=== PATIENT | male | born 1945 | race African-American/Black ===

== ENCOUNTER 2023-06-03 11:32 | Inpatient (IN) | payer MEDICARE, OTHER ==
[~2023-06-03] VITALS: Ht 175.3 cm; Wt 73.0 kg
[2023-06-03] MEDS ORDERED: IV NS 0.9% 500 ML BAG IV ONE (12:00)
[2023-06-03 12:01] LABS: BASOPHILS % (AUTO) 0.4 % (0.0-2.0); EOSINOPHILS % (AUTO) 0.1 % (0.0-6.0); HEMATOCRIT 38 % (39-51); HEMOGLOBIN 11.9 g/dL (13.5-17.5); LYMPHOCYTES # (AUTO) 1.1 K/uL (0.8-4.8); LYMPHOCYTES % (AUTO) 15.6 % (20.0-44.0); MEAN CORPUSCULAR HEMOGLOBIN 23 PG (26.0-33.0); MEAN CORPUSCULAR HGB CONC 32 g/dl (31.0-36.0); MEAN CORPUSCULAR VOLUME 73 fL (80-96); MONOCYTES # (AUTO) 1.1 K/uL (0.1-1.30); MONOCYTES % (AUTO) 14.8 % (2.0-12.0); NEUTROPHILS # (AUTO) 4.9 K/uL (1.8-8.9); NEUTROPHILS % (AUTO) 69.1 % (43.0-81.0); PLATELET COUNT (AUTO) 189 K/uL (150-450); RED BLOOD CELL COUNT(AUTO) 5.14 MIL/uL (4.5-6.0); RED CELL DISTRIBUTION WIDTH 15.5 % (11.5-15.0); WHITE BLOOD COUNT (AUTO) 7.1 K/uL (4.3-11.0)
[2023-06-03 12:11] LABS: INR 1.1 (0.91-1.10); PARTIAL THROMBOPLASTIN TIME 29.9 SEC (24.3-34.3); PROTHROMBIN TIME 11.6 SECS (9.2-11.1)
[2023-06-03] MEDS ORDERED: MAGN400O6 PO (12:11)
[2023-06-03] MEDS ORDERED: DIVA125T32 PO (12:11)
[2023-06-03] MEDS ORDERED: ASCO-495 PO (12:11)
[2023-06-03] MEDS ORDERED: ACET-868 PO (12:11)
[2023-06-03] MEDS ORDERED: OLAN2.5T3 PO (12:11)
[2023-06-03] MEDS ORDERED: ATOR40TA PO (12:11)
[2023-06-03] MEDS ORDERED: METO25TA6 PO (12:11)
[2023-06-03] MEDS ORDERED: GLUC1KIT IM (12:11)
[2023-06-03] MEDS ORDERED: ACET-2605 PO (12:11)
[2023-06-03] MEDS ORDERED: AMLO10TA4 PO (12:11)
[2023-06-03] MEDS ORDERED: DEXT37.54 PO (12:11)
[2023-06-03] MEDS ORDERED: NA P133E RC (12:11)
[2023-06-03 12:15] LABS: CALCIUM, SERUM 9.1 mg/dL (8.5-10.1); CARBON DIOXIDE 28 mmol/L (21-32); CHLORIDE 100 mmol/L (98-107); CREATININE 1.3 mg/dL (0.6-1.3); GLUCOSE 189 mg/dL (74-106); SERUM AMMONIA 20 umol/L (11-32); SODIUM SERUM 138 mmol/L (136-145); UREA NITROGEN, BLOOD 11 mg/dL (7-18)
[2023-06-03 12:24] LABS: LACTIC ACID 2.8 mmol/L (0.4-2.0)
[2023-06-03] MEDS ORDERED: METF-440 PO (12:34)
[2023-06-03 12:48] LABS: APPEARANCE,URINE CLEAR (CLEAR); BILIRUBIN,URINE NEGATIVE (NEGATIVE); BLOOD, URINE 1+ Ery/uL (NEGATIVE); COLOR,URINE YELLOW (YELLOW); KETONES,URINE TRACE mg/dL (NEGATIVE); LEUKOCYTE ESTERASE ,URINE NEGATIVE (NEGATIVE); NITRITE, URINE NEGATIVE (NEGATIVE); PH,URINE 5.5 (5.0-8.0); PROTEIN,URINE TRACE mg/dl (NEGATIVE); UGLUCOSE TRACE mg/dL (NEGATIVE)
[2023-06-03 12:52] LABS: ADD URINE CULTURE NO; BACTERIA,URINE Rare /HPF (None Seen); RBC,URINE 0-2 /HPF (0-2); SQUAMOUS EPITHELIAL CELL,UR Few /HPF (None Seen)
[2023-06-03 13:25] LABS: AMPHETAMINE, URINE NEGATIVE (NEGATIVE); BARBITURATE, URINE NEGATIVE (NEGATIVE); BENZODIAZEPINE, URINE NEGATIVE (NEGATIVE); CANNABINOID, URINE NEGATIVE (NEGATIVE); COCCAINE, URINE NEGATIVE (NEGATIVE); OPIATE, URINE NEGATIVE (NEGATIVE); PHENCYCLIDINE SCREEN,URINE NEGATIVE (NEGATIVE)
[2023-06-03] MEDS ORDERED: VANCOMYCIN 1 GM in IV D5W 250 ML IV ONE (14:30)
[2023-06-03] MEDS ORDERED: CEFEPIME 1 GM in IV D5W 50 ML IV ONE (14:30)
[2023-06-03] MEDS ORDERED: ONDANSETRON HCL/PF 4 MG/2 ML VIAL IVP PRN (15:30)
[2023-06-03] MEDS ORDERED: ACETAMINOPHEN 325 MG TABLET PO PRN (15:30)
[2023-06-03] MEDS ORDERED: IV NS 0.9% 1,000 ML BAG IV ONE (15:30)
[2023-06-03] MEDS ORDERED: ENOXAPARIN SODIUM 40 MG/0.4 ML DISP.SYRIN SQ ONE (16:11)
[2023-06-03] MEDS: ENOXAPARIN SODIUM 40 MG/0.4 ML DISP.SYRIN SQ SCH (16:13)
[2023-06-03 16:34] LABS: ALCOHOL, BLOOD < 3 mg/dL (0-10)
[2023-06-03 16:45] LABS: SALICYLATE 1.2 mg/dL (2.8-20.0)
[2023-06-03 16:46] LABS: ACETAMINOPHEN 0 ug/ml (10-30)
[2023-06-03 20:00] VITALS: BP 136/64; TEMP 98.8; O2SAT 98
[2023-06-03] MEDS: IV NS 0.9% 1,000 ML IV PRN (23:07)
[2023-06-03 23:15] VITALS: BP 136/64; TEMP 98.8; O2SAT 98
[2023-06-04] VITALS: BP 151/58; TEMP 97.5; O2SAT 98
[2023-06-04] MEDS ORDERED: DEXTROSE 50%-WATER 50 ML DISP.SYRIN IV PRN (00:30)
[2023-06-04 02:16] LABS: ALANINE AMINOTRANSFERASE 25 U/L (12-78); ALBUMIN 3.1 g/dL (3.4-5.0); ALKALINE PHOSPHATASE 55 U/L (46-116); ASPARTATE AMINOTRANSFERASE 33 U/L (15-37); BILIRUBIN,DIRECT 0.1 mg/dL (0.0-0.2); BILIRUBIN,TOTAL 0.4 mg/dL (0.2-1.0); THYROID STIMULATING HORMONE 0.506 uIU/mL (0.358-3.74); TOTAL PROTEIN, SERUM 7.8 g/dL (6.4-8.2)
[2023-06-04 04:00] VITALS: BP 135/56; TEMP 97.5; O2SAT 98
[2023-06-04 06:24] LABS: BASOPHILS % (AUTO) 0.8 % (0.0-2.0); EOSINOPHILS # (AUTO) 0.1 K/uL (0.0-0.7); EOSINOPHILS % (AUTO) 2.5 % (0.0-6.0); HEMATOCRIT 40 % (39-51); HEMOGLOBIN 12.6 g/dL (13.5-17.5); LYMPHOCYTES # (AUTO) 1.8 K/uL (0.8-4.8); MEAN CORPUSCULAR HEMOGLOBIN 23 PG (26.0-33.0); MEAN CORPUSCULAR HGB CONC 32 g/dl (31.0-36.0); MEAN CORPUSCULAR VOLUME 73 fL (80-96); MONOCYTES # (AUTO) 0.9 K/uL (0.1-1.30); MONOCYTES % (AUTO) 18.9 % (2.0-12.0); NEUTROPHILS # (AUTO) 2.1 K/uL (1.8-8.9); NEUTROPHILS % (AUTO) 41.8 % (43.0-81.0); PLATELET COUNT (AUTO) 178 K/uL (150-450); RED BLOOD CELL COUNT(AUTO) 5.51 MIL/uL (4.5-6.0); RED CELL DISTRIBUTION WIDTH 15.1 % (11.5-15.0)
[2023-06-04 06:56] LABS: MAGNESIUM 1.8 mg/dL (1.8-2.4); PHOSPHORUS 3.8 mg/dL (2.5-4.9); POTASSIUM 3.7 mmol/L (3.5-5.1)
[2023-06-04] MEDS: BLOOD SUGAR DIAGNOSTIC 1 EACH STRIP IN SCH ×4 (07:47→21:30)
[2023-06-04 08:00] VITALS: BP 133/61; TEMP 98.6; O2SAT 94
[2023-06-04] MEDS: AMLODIPINE BESYLATE 10 MG TABLET PO SCH (09:30)
[2023-06-04] MEDS: DIVALPROEX SODIUM 125 MG TABLET.DR PO SCH ×3 (09:30→17:58)
[2023-06-04] MEDS: ASCORBIC ACID 500 MG TABLET PO SCH (09:30)
[2023-06-04] MEDS: METOPROLOL TARTRATE 25 MG TABLET PO SCH ×2 (09:31→21:29)
[2023-06-04] MEDS: ENOXAPARIN SODIUM 40 MG/0.4 ML DISP.SYRIN SQ SCH (09:31)
[2023-06-04 12:00] VITALS: BP 129/59; TEMP 97.3; O2SAT 100
[2023-06-04] MEDS: INSULIN REGULAR, HUMAN 100 UNIT/ML 3 ML VIAL SQ PRN ×2 (12:25→22:09)
[2023-06-04 12:42] LABS: ANISOCYTOSIS 1+; BASOPHILS % (MANUAL) 0 % (0.0-2.0); EOSINOPHILS % (MANUAL) 3 % (0-4); LYMPHOCYTES % (MANUAL) 25 % (16-48); MONOCYTES % (MANUAL) 16 % (0-11.0); NEUTROPHILS % (MANUAL) 56 (42-76); PLATELET ESTIMATE ADEQUATE
[2023-06-04] MEDS: IV NS 0.9% 1,000 ML IV PRN (13:00)
[2023-06-04] MEDS ORDERED: OLANZAPINE 10 MG VIAL IM ONE (14:00)
[2023-06-04 20:00] VITALS: BP 145/64; TEMP 97.5; O2SAT 60
[2023-06-04] MEDS: ATORVASTATIN 40 MG TABLET PO SCH (21:27)
[2023-06-05] MEDS: BLOOD SUGAR DIAGNOSTIC 1 EACH STRIP IN SCH ×4 (06:36→21:35)
[2023-06-05] MEDS: INSULIN REGULAR, HUMAN 100 UNIT/ML 3 ML VIAL SQ PRN ×3 (06:37→23:18)
[2023-06-05] MEDS: IV NS 0.9% 1,000 ML IV PRN ×2 (07:21→23:04)
[2023-06-05 07:30] VITALS: BP 142/64; TEMP 98.1; O2SAT 99
[2023-06-05] MEDS: ASCORBIC ACID 500 MG TABLET PO SCH (09:20)
[2023-06-05] MEDS: METOPROLOL TARTRATE 25 MG TABLET PO SCH ×2 (09:20→21:10)
[2023-06-05] MEDS: AMLODIPINE BESYLATE 10 MG TABLET PO SCH (09:20)
[2023-06-05] MEDS: DIVALPROEX SODIUM 125 MG TABLET.DR PO SCH ×3 (09:20→17:15)
[2023-06-05] MEDS: ENOXAPARIN SODIUM 40 MG/0.4 ML DISP.SYRIN SQ SCH (09:23)
[2023-06-05 16:00] VITALS: BP 99/69; TEMP 98.1; O2SAT 100
[2023-06-05 20:00] VITALS: BP 128/60; TEMP 98.1; O2SAT 96
[2023-06-05] MEDS: ATORVASTATIN 40 MG TABLET PO SCH (21:10)
[2023-06-06 06:50] LABS: BASOPHILS % (AUTO) 0.2 % (0.0-2.0); EOSINOPHILS # (AUTO) 0.1 K/uL (0.0-0.7); EOSINOPHILS % (AUTO) 1.1 % (0.0-6.0); HEMATOCRIT 37 % (39-51); HEMOGLOBIN 11.2 g/dL (13.5-17.5); LYMPHOCYTES # (AUTO) 2.4 K/uL (0.8-4.8); LYMPHOCYTES % (AUTO) 37.5 % (20.0-44.0); MEAN CORPUSCULAR HEMOGLOBIN 22 PG (26.0-33.0); MEAN CORPUSCULAR HGB CONC 31 g/dl (31.0-36.0); MEAN CORPUSCULAR VOLUME 73 fL (80-96); MONOCYTES # (AUTO) 0.9 K/uL (0.1-1.30); MONOCYTES % (AUTO) 14.3 % (2.0-12.0); NEUTROPHILS % (AUTO) 46.9 % (43.0-81.0); PLATELET COUNT (AUTO) 263 K/uL (150-450); WHITE BLOOD COUNT (AUTO) 6.4 K/uL (4.3-11.0)
[2023-06-06] MEDS: BLOOD SUGAR DIAGNOSTIC 1 EACH STRIP IN SCH ×3 (07:34→18:00)
[2023-06-06 08:24] LABS: CALCIUM, SERUM 8.5 mg/dL (8.5-10.1); MAGNESIUM 1.7 mg/dL (1.8-2.4); POTASSIUM 3.6 mmol/L (3.5-5.1)
[2023-06-06 08:37] VITALS: BP 154/60; TEMP 97.9; O2SAT 96
[2023-06-06] MEDS: ASCORBIC ACID 500 MG TABLET PO SCH (08:54)
[2023-06-06] MEDS: DIVALPROEX SODIUM 125 MG TABLET.DR PO SCH ×3 (08:54→18:01)
[2023-06-06] MEDS: METOPROLOL TARTRATE 25 MG TABLET PO SCH (08:55)
[2023-06-06] MEDS: AMLODIPINE BESYLATE 10 MG TABLET PO SCH (08:56)
[2023-06-06] MEDS: ENOXAPARIN SODIUM 40 MG/0.4 ML DISP.SYRIN SQ SCH (08:56)
[2023-06-06] MEDS: Magnesium 1GM/D5W 100ML PREMIX 100 ML IV SCH ×2 (11:17→12:27)
[2023-06-06] MEDS: INSULIN REGULAR, HUMAN 100 UNIT/ML 3 ML VIAL SQ PRN ×2 (11:54→18:02)
[2023-06-06 16:02] VITALS: BP 143/71; TEMP 98.6; O2SAT 100
== END 2023-06-06 18:45 | DRG 640 ==
LOC: ER 11:32 → TRANSITION 13:13 → TELE 18:40 → MED 06-04 18:05
PROVIDERS: ADMIT Nurse Practitioner Acute Care; ATTEND Nurse Practitioner Acute Care
DX: E86.0 Dehydration (principal); G93.41 Metabolic encephalopathy; E87.20 Acidosis, unspecified; I25.10 Atherosclerotic heart disease of native coronary artery without angina pectoris; E11.9 Type 2 diabetes mellitus without complications; E78.5 Hyperlipidemia, unspecified; Z79.84 Long term (current) use of oral hypoglycemic drugs; F31.9 Bipolar disorder, unspecified; I10 Essential (primary) hypertension; Z20.822 Contact with and (suspected) exposure to COVID-19; F03.90 Unspecified dementia, unspecified severity, without behavioral disturbance, psychotic disturbance, mood disturbance, and anxiety
CPT/HCPCS: 36415; 70450-TC; 71045-TC; 80048-TC; 80076-TC; 81001; 82140-TC; 82962-TC; 83605-TC; 83735-TC; 84100-TC; 84443-TC; 84484-TC; 85025-TC; 85730-TC; 87040-TC; 97110-TC; 97530-TC; A4223; G0378; G0480; J0692; J1650; J1815; J3370; J3475; J3490; J7030; J7060

== ENCOUNTER 2023-08-12 16:19 | Inpatient (IN) | payer BC, MEDICARE, OTHER ==
[~2023-08-12] VITALS: Ht 175.3 cm; Wt 72.6 kg
[~2023-08-12 16:19] MED LIST: ACET-2605 PO; ACET-868 PO; AMLO10TA4 PO; ASCO-495 PO; ATOR40TA PO; DEXT37.54 PO; DIVA125T32 PO; GLUC1KIT IM; MAGN400O6 PO; METF-440 PO; METO25TA6 PO; NA P133E RC; OLAN2.5T3 PO
[2023-08-12] MEDS ORDERED: MULT-447 PO (17:00)
[2023-08-12] MEDS ORDERED: DOCU-141 PO (17:00)
[2023-08-12] MEDS ORDERED: OMEG1CAP PO (17:00)
[2023-08-12] MEDS ORDERED: CEFP200T14 PO (17:00)
[2023-08-12 17:32] LABS: BASOPHILS % (AUTO) 0.1 % (0.0-2.0); HEMATOCRIT 34 % (39-51); HEMOGLOBIN 10.7 g/dL (13.5-17.5); LYMPHOCYTES # (AUTO) 0.5 K/uL (0.8-4.8); LYMPHOCYTES % (AUTO) 2.3 % (20.0-44.0); MEAN CORPUSCULAR HEMOGLOBIN 23 PG (26.0-33.0); MEAN CORPUSCULAR HGB CONC 31 g/dl (31.0-36.0); MEAN CORPUSCULAR VOLUME 74 fL (80-96); MONOCYTES # (AUTO) 1.8 K/uL (0.1-1.30); MONOCYTES % (AUTO) 8.8 % (2.0-12.0); NEUTROPHILS # (AUTO) 18.1 K/uL (1.8-8.9); NEUTROPHILS % (AUTO) 88.8 % (43.0-81.0); PLATELET COUNT (AUTO) 298 K/uL (150-450); RED BLOOD CELL COUNT(AUTO) 4.61 MIL/uL (4.5-6.0); RED CELL DISTRIBUTION WIDTH 14.9 % (11.5-15.0); WHITE BLOOD COUNT (AUTO) 20.4 K/uL (4.3-11.0)
[2023-08-12 17:57] LABS: THYROID STIMULATING HORMONE 1.045 uIU/mL (0.358-3.74)
[2023-08-12] MEDS ORDERED: diphenhydrAMINE HCL 50 MG/ML VIAL IV ONE ×2 (18:00→20:30)
[2023-08-12] MEDS ORDERED: LORAZEPAM INJ 2 MG/ML VIAL IV ONE (18:00)
[2023-08-12] MEDS ORDERED: diphenhydrAMINE HCL 50 MG/ML VIAL ONE ×2 (18:09→20:34)
[2023-08-12] MEDS ORDERED: HALOPERIDOL LACTATE INJ 5 MG/ML VIAL ONE ×2 (18:10→20:34)
[2023-08-12 18:14] LABS: CALCIUM, SERUM 8.9 mg/dL (8.5-10.1); CARBON DIOXIDE 28 mmol/L (21-32); CHLORIDE 107 mmol/L (98-107); CREATININE 1.3 mg/dL (0.6-1.3); GLUCOSE 364 mg/dL (74-106); POTASSIUM 4.3 mmol/L (3.5-5.1); SODIUM SERUM 141 mmol/L (136-145); UREA NITROGEN, BLOOD 18 mg/dL (7-18)
[2023-08-12 18:27] LABS: ALANINE AMINOTRANSFERASE 18 U/L (12-78); ALBUMIN 2.5 g/dL (3.4-5.0); ALKALINE PHOSPHATASE 60 U/L (46-116); ASPARTATE AMINOTRANSFERASE 13 U/L (15-37); BILIRUBIN,DIRECT 0.1 mg/dL (0.0-0.2); BILIRUBIN,TOTAL 0.5 mg/dL (0.2-1.0); LIPASE 19 U/L (16-77); NT-PRO BNP 475 pg/mL (0-125); TOTAL PROTEIN, SERUM 7.5 g/dL (6.4-8.2)
[2023-08-12] MEDS ORDERED: HALOPERIDOL LACTATE INJ 5 MG/ML VIAL IV ONE ×2 (18:30→20:30)
[2023-08-12 18:55] LABS: ANISOCYTOSIS 1+; BAND % (MANUAL) 5 % (0.0-5.0); LYMPHOCYTES % (MANUAL) 2 % (16-48); MONOCYTES % (MANUAL) 8 % (0-11.0); NEUTROPHILS % (MANUAL) 85 (42-76); PLATELET ESTIMATE ADEQUATE; STOMATOCYTES 1+; TARGET CELLS 1+
[2023-08-12] MEDS ORDERED: PIPERACI/TAZO 3.375GM/D5W 50ML PB IV ONE (19:00)
[2023-08-12] MEDS ORDERED: PIPERACILLIN /TAZOBACTAM 3.375 G in IV D5W 50 ML IV ONE (19:00)
[2023-08-12] MEDS ORDERED: ZOLPIDEM TARTRATE 5 MG TABLET PO PRN (21:00)
[2023-08-12] MEDS ORDERED: MAGNESIUM HYDROXIDE 30 ML UDC PO PRN (21:00)
[2023-08-12] MEDS ORDERED: MAG HYDROX/AL HYDROX/SIMETH 30 ML UDC PO PRN (21:00)
[2023-08-12] MEDS ORDERED: DEXTROSE 50%-WATER 50 ML DISP.SYRIN IV PRN (21:00)
[2023-08-12] MEDS ORDERED: Z GUARD REMEDY 4 OZ OINT TP PRN (21:00)
[2023-08-12] MEDS ORDERED: ACETAMINOPHEN 325 MG TABLET PO PRN (21:00)
[2023-08-12] MEDS ORDERED: ONDANSETRON HCL/PF 4 MG/2 ML VIAL IVP PRN (21:00)
[2023-08-12 21:05] LABS: APPEARANCE,URINE BLOODY (CLEAR); COLOR,URINE RED (YELLOW)
[2023-08-12 21:47] LABS: BACTERIA,URINE 1+ /HPF (None Seen); RBC,URINE TOO NUMEROUS TO COUN /HPF (0-2); SQUAMOUS EPITHELIAL CELL,UR 0-2 /HPF (None Seen)
[2023-08-12 22:35] VITALS: BP 151/67; TEMP 98.1; O2SAT 98
[2023-08-13] VITALS (7 sets, daily range): BP systolic 136–167; BP diastolic 74–89; TEMP 97–100.4; O2SAT 96–99
[2023-08-13] MEDS ORDERED: PIPERACILLIN /TAZOBACTAM 3.375 G in IV D5W 50 ML IV SCH ×2
[2023-08-13] MEDS: BLOOD SUGAR DIAGNOSTIC 1 EACH STRIP IN SCH ×5 (00:10→22:08)
[2023-08-13] MEDS: INSULIN REGULAR, HUMAN 100 UNIT/ML 3 ML VIAL SQ PRN ×5 (00:13→22:09)
[2023-08-13] MEDS ORDERED: PIPERACI/TAZO 3.375GM/D5W 50ML PB IV ONE ×2 (00:21→03:36)
[2023-08-13] MEDS: PIPERACILLIN /TAZOBACTAM 3.375 G in IV D5W 50 ML IV SCH ×2 (00:39→06:36)
[2023-08-13] MEDS: IV NS 0.9% 1,000 ML IV PRN ×2 (00:39→16:31)
[2023-08-13] MEDS: METOPROLOL TARTRATE 25 MG TABLET PO SCH ×3 (00:58→21:08)
[2023-08-13] MEDS: ATORVASTATIN 40 MG TABLET PO SCH ×2 (00:59→21:08)
[2023-08-13 07:20] LABS: BASOPHILS # (AUTO) 0.1 K/uL (0.0-0.2); BASOPHILS % (AUTO) 0.3 % (0.0-2.0); EOSINOPHILS # (AUTO) 0.2 K/uL (0.0-0.7); EOSINOPHILS % (AUTO) 0.9 % (0.0-6.0); HEMATOCRIT 37 % (39-51); HEMOGLOBIN 11.4 g/dL (13.5-17.5); LYMPHOCYTES % (AUTO) 3.9 % (20.0-44.0); MEAN CORPUSCULAR HEMOGLOBIN 23 PG (26.0-33.0); MEAN CORPUSCULAR HGB CONC 31 g/dl (31.0-36.0); MEAN CORPUSCULAR VOLUME 75 fL (80-96); MONOCYTES # (AUTO) 1.6 K/uL (0.1-1.30); MONOCYTES % (AUTO) 6.1 % (2.0-12.0); NEUTROPHILS # (AUTO) 22.6 K/uL (1.8-8.9); NEUTROPHILS % (AUTO) 88.8 % (43.0-81.0); PLATELET COUNT (AUTO) 319 K/uL (150-450); RED BLOOD CELL COUNT(AUTO) 4.92 MIL/uL (4.5-6.0); WHITE BLOOD COUNT (AUTO) 25.5 K/uL (4.3-11.0)
[2023-08-13 07:40] LABS: CALCIUM, SERUM 8.8 mg/dL (8.5-10.1); CARBON DIOXIDE 23 mmol/L (21-32); CHLORIDE 108 mmol/L (98-107); CREATININE 1.5 mg/dL (0.6-1.3); GLUCOSE 293 mg/dL (74-106); PHOSPHORUS 4.1 mg/dL (2.5-4.9); SODIUM SERUM 143 mmol/L (136-145); UREA NITROGEN, BLOOD 22 mg/dL (7-18)
[2023-08-13] MEDS ORDERED: Medication Not On Formulary EA (Omega-3 Fatty Acids/Fish Oil (Fish Oil 1,000 Mg Capsule) PO SCH (09:00)
[2023-08-13] MEDS: DOCUSATE SODIUM 100 MG CAPSULE PO SCH (09:13)
[2023-08-13] MEDS: OLANZAPINE 2.5 MG TABLET PO SCH ×2 (09:13→16:14)
[2023-08-13] MEDS: MULTIVITAMINS,THERAGRAN 1 UDTAB TABLET PO SCH (09:13)
[2023-08-13] MEDS: AMLODIPINE BESYLATE 10 MG TABLET PO SCH (09:13)
[2023-08-13] MEDS: DIVALPROEX SODIUM 125 MG TABLET.DR PO SCH ×3 (09:13→16:14)
[2023-08-13] MEDS: PIPERACILLIN /TAZOBACTAM 3.375 G in IV D5W 100 ML IV SCH ×2 (12:44→20:29)
[2023-08-14] VITALS: BP 144/55; TEMP 98.6; O2SAT 98
[2023-08-14] MEDS: PIPERACILLIN /TAZOBACTAM 3.375 G in IV D5W 100 ML IV SCH ×3 (04:55→21:55)
[2023-08-14 05:00] VITALS: BP 151/84; TEMP 97.9; O2SAT 98
[2023-08-14] MEDS: BLOOD SUGAR DIAGNOSTIC 1 EACH STRIP IN SCH ×4 (06:36→22:27)
[2023-08-14] MEDS: INSULIN REGULAR, HUMAN 100 UNIT/ML 3 ML VIAL SQ PRN ×4 (06:39→22:29)
[2023-08-14] MEDS: IV NS 0.9% 1,000 ML IV PRN (06:49)
[2023-08-14] MEDS: OLANZAPINE 2.5 MG TABLET PO SCH ×2 (08:14→16:04)
[2023-08-14] MEDS: DOCUSATE SODIUM 100 MG CAPSULE PO SCH (08:15)
[2023-08-14] MEDS: DIVALPROEX SODIUM 125 MG TABLET.DR PO SCH ×3 (08:15→16:04)
[2023-08-14] MEDS: MULTIVITAMINS,THERAGRAN 1 UDTAB TABLET PO SCH (08:15)
[2023-08-14 08:16] VITALS: BP 150/60; TEMP 98.1; O2SAT 98
[2023-08-14] MEDS: AMLODIPINE BESYLATE 10 MG TABLET PO SCH (08:16)
[2023-08-14] MEDS: METOPROLOL TARTRATE 25 MG TABLET PO SCH ×2 (08:16→21:55)
[2023-08-14 11:33] LABS: BASOPHILS % (AUTO) 0.2 % (0.0-2.0); HEMATOCRIT 38 % (39-51); HEMOGLOBIN 11.8 g/dL (13.5-17.5); LYMPHOCYTES # (AUTO) 1.8 K/uL (0.8-4.8); LYMPHOCYTES % (AUTO) 7.4 % (20.0-44.0); MEAN CORPUSCULAR HEMOGLOBIN 23 PG (26.0-33.0); MEAN CORPUSCULAR HGB CONC 31 g/dl (31.0-36.0); MEAN CORPUSCULAR VOLUME 75 fL (80-96); MONOCYTES # (AUTO) 1.6 K/uL (0.1-1.30); MONOCYTES % (AUTO) 6.4 % (2.0-12.0); NEUTROPHILS # (AUTO) 20.9 K/uL (1.8-8.9); PLATELET COUNT (AUTO) 319 K/uL (150-450); RED BLOOD CELL COUNT(AUTO) 5.05 MIL/uL (4.5-6.0); RED CELL DISTRIBUTION WIDTH 15.4 % (11.5-15.0); WHITE BLOOD COUNT (AUTO) 24.3 K/uL (4.3-11.0)
[2023-08-14 11:44] LABS: CALCIUM, SERUM 8.5 mg/dL (8.5-10.1); CARBON DIOXIDE 27 mmol/L (21-32); CHLORIDE 113 mmol/L (98-107); CREATININE 2.4 mg/dL (0.6-1.3); GLUCOSE 160 mg/dL (74-106); POTASSIUM 3.4 mmol/L (3.5-5.1); SODIUM SERUM 150 mmol/L (136-145); UREA NITROGEN, BLOOD 33 mg/dL (7-18)
[2023-08-14 12:06] VITALS: BP 135/69; TEMP 98.2; O2SAT 96
[2023-08-14] MEDS: POTASSIUM CL. PREMIX PERIPHER. 50 ML IV SCH ×4 (12:27→15:40)
[2023-08-14] MEDS: ENOXAPARIN SODIUM 30 MG/0.3 ML DISP.SYRIN SQ SCH (12:30)
[2023-08-14 16:35] VITALS: BP 102/56; TEMP 99.1; O2SAT 97
[2023-08-14 20:00] VITALS: BP 107/52; TEMP 98.8; O2SAT 97
[2023-08-14] MEDS: ATORVASTATIN 40 MG TABLET PO SCH (21:55)
[2023-08-14] MEDS: IV 1/2NS 1000 ML 1,000 ML IV PRN (22:01)
[2023-08-15 05:00] VITALS: BP 143/99; TEMP 97.9; O2SAT 100
[2023-08-15] MEDS: PIPERACILLIN /TAZOBACTAM 3.375 G in IV D5W 100 ML IV SCH ×3 (05:08→21:56)
[2023-08-15] MEDS: BLOOD SUGAR DIAGNOSTIC 1 EACH STRIP IN SCH ×4 (06:31→22:20)
[2023-08-15] MEDS: INSULIN REGULAR, HUMAN 100 UNIT/ML 3 ML VIAL SQ PRN ×3 (06:35→22:19)
[2023-08-15 07:11] LABS: BASOPHILS % (AUTO) 0.1 % (0.0-2.0); EOSINOPHILS # (AUTO) 0.2 K/uL (0.0-0.7); EOSINOPHILS % (AUTO) 1.5 % (0.0-6.0); HEMATOCRIT 32 % (39-51); HEMOGLOBIN 10.2 g/dL (13.5-17.5); LYMPHOCYTES # (AUTO) 2.3 K/uL (0.8-4.8); LYMPHOCYTES % (AUTO) 14.9 % (20.0-44.0); MEAN CORPUSCULAR HEMOGLOBIN 24 PG (26.0-33.0); MEAN CORPUSCULAR HGB CONC 32 g/dl (31.0-36.0); MEAN CORPUSCULAR VOLUME 74 fL (80-96); MONOCYTES % (AUTO) 6.7 % (2.0-12.0); NEUTROPHILS # (AUTO) 11.8 K/uL (1.8-8.9); NEUTROPHILS % (AUTO) 76.8 % (43.0-81.0); PLATELET COUNT (AUTO) 294 K/uL (150-450); RED BLOOD CELL COUNT(AUTO) 4.33 MIL/uL (4.5-6.0); RED CELL DISTRIBUTION WIDTH 15.3 % (11.5-15.0); WHITE BLOOD COUNT (AUTO) 15.3 K/uL (4.3-11.0)
[2023-08-15 07:30] VITALS: BP 140/43; TEMP 98.2; O2SAT 100
[2023-08-15 07:39] LABS: CALCIUM, SERUM 8.4 mg/dL (8.5-10.1); CARBON DIOXIDE 29 mmol/L (21-32); CHLORIDE 119 mmol/L (98-107); CREATININE 1.6 mg/dL (0.6-1.3); GLUCOSE 159 mg/dL (74-106); MAGNESIUM 2.4 mg/dL (1.8-2.4); PHOSPHORUS 3.8 mg/dL (2.5-4.9); POTASSIUM 3.6 mmol/L (3.5-5.1); SODIUM SERUM 155 mmol/L (136-145); UREA NITROGEN, BLOOD 26 mg/dL (7-18)
[2023-08-15] MEDS: DIVALPROEX SODIUM 125 MG TABLET.DR PO SCH ×3 (08:54→17:02)
[2023-08-15] MEDS: MULTIVITAMINS,THERAGRAN 1 UDTAB TABLET PO SCH (08:54)
[2023-08-15] MEDS: GLUCERNA SHAKE 237 ML CAN PO SCH ×2 (08:54→17:02)
[2023-08-15] MEDS: DOCUSATE SODIUM 100 MG CAPSULE PO SCH (08:54)
[2023-08-15] MEDS: OLANZAPINE 2.5 MG TABLET PO SCH ×2 (08:55→17:02)
[2023-08-15] MEDS: AMLODIPINE BESYLATE 10 MG TABLET PO SCH (08:55)
[2023-08-15] MEDS: METOPROLOL TARTRATE 25 MG TABLET PO SCH ×2 (08:56→21:35)
[2023-08-15] MEDS: ENOXAPARIN SODIUM 30 MG/0.3 ML DISP.SYRIN SQ SCH (12:49)
[2023-08-15 16:00] VITALS: BP 116/59; TEMP 98.4; O2SAT 98
[2023-08-15] MEDS: IV 1/2NS 1000 ML 1,000 ML IV PRN (19:35)
[2023-08-15] MEDS: ATORVASTATIN 40 MG TABLET PO SCH (21:35)
[2023-08-16] MEDS: PIPERACILLIN /TAZOBACTAM 3.375 G in IV D5W 100 ML IV SCH ×3 (05:22→20:53)
[2023-08-16 05:27] VITALS: BP 142/52; TEMP 97.9; O2SAT 99
[2023-08-16] MEDS: BLOOD SUGAR DIAGNOSTIC 1 EACH STRIP IN SCH ×4 (06:36→21:24)
[2023-08-16] MEDS: INSULIN REGULAR, HUMAN 100 UNIT/ML 3 ML VIAL SQ PRN ×4 (06:37→21:29)
[2023-08-16 07:20] LABS: BASOPHILS % (AUTO) 0.3 % (0.0-2.0); EOSINOPHILS # (AUTO) 0.4 K/uL (0.0-0.7); EOSINOPHILS % (AUTO) 4.9 % (0.0-6.0); HEMATOCRIT 30 % (39-51); HEMOGLOBIN 9.6 g/dL (13.5-17.5); LYMPHOCYTES # (AUTO) 1.7 K/uL (0.8-4.8); LYMPHOCYTES % (AUTO) 20.9 % (20.0-44.0); MEAN CORPUSCULAR HEMOGLOBIN 24 PG (26.0-33.0); MEAN CORPUSCULAR HGB CONC 32 g/dl (31.0-36.0); MEAN CORPUSCULAR VOLUME 74 fL (80-96); MONOCYTES # (AUTO) 0.7 K/uL (0.1-1.30); MONOCYTES % (AUTO) 8.9 % (2.0-12.0); NEUTROPHILS # (AUTO) 5.4 K/uL (1.8-8.9); PLATELET COUNT (AUTO) 285 K/uL (150-450); RED BLOOD CELL COUNT(AUTO) 4.05 MIL/uL (4.5-6.0); RED CELL DISTRIBUTION WIDTH 15.3 % (11.5-15.0); WHITE BLOOD COUNT (AUTO) 8.4 K/uL (4.3-11.0)
[2023-08-16 07:40] LABS: CALCIUM, SERUM 8.3 mg/dL (8.5-10.1); CREATININE 1.1 mg/dL (0.6-1.3); MAGNESIUM 2.2 mg/dL (1.8-2.4); PHOSPHORUS 3.2 mg/dL (2.5-4.9); POTASSIUM 3.4 mmol/L (3.5-5.1)
[2023-08-16] MEDS: DIVALPROEX SODIUM 125 MG TABLET.DR PO SCH ×4 (08:50→16:24)
[2023-08-16] MEDS: DOCUSATE SODIUM 100 MG CAPSULE PO SCH ×2 (08:51→08:57)
[2023-08-16] MEDS: MULTIVITAMINS,THERAGRAN 1 UDTAB TABLET PO SCH ×2 (08:51→08:58)
[2023-08-16] MEDS: METOPROLOL TARTRATE 25 MG TABLET PO SCH ×3 (08:51→20:47)
[2023-08-16] MEDS: OLANZAPINE 2.5 MG TABLET PO SCH ×3 (08:51→16:24)
[2023-08-16] MEDS: AMLODIPINE BESYLATE 10 MG TABLET PO SCH ×2 (08:52→08:58)
[2023-08-16] MEDS: GLUCERNA SHAKE 237 ML CAN PO SCH ×2 (08:52→16:27)
[2023-08-16] MEDS: IV 1/2NS 1000 ML 1,000 ML IV PRN (10:09)
[2023-08-16] MEDS ORDERED: POTASSIUM CHLORIDE 20 MEQ TAB.PRT.SR PO SCH (10:30)
[2023-08-16] MEDS ORDERED: IV 1/2NS 1000 ML 1,000 ML IV PRN (13:00)
[2023-08-16] MEDS: ENOXAPARIN SODIUM 30 MG/0.3 ML DISP.SYRIN SQ SCH (13:02)
[2023-08-16] MEDS: POTASSIUM CL. PREMIX PERIPHER. 50 ML IV SCH ×2 (14:16→15:30)
[2023-08-16] MEDS: IV D5W 1,000 ML IV PRN (15:30)
[2023-08-16 20:00] VITALS: BP 136/51; TEMP 99.3; O2SAT 98
[2023-08-16 20:32] VITALS: BP 136/51; TEMP 99.3; O2SAT 97
[2023-08-16] MEDS: ATORVASTATIN 40 MG TABLET PO SCH (21:19)
[2023-08-17] MEDS: IV D5W 1,000 ML IV PRN (02:57)
[2023-08-17] MEDS: PIPERACILLIN /TAZOBACTAM 3.375 G in IV D5W 100 ML IV SCH ×2 (04:52→12:27)
[2023-08-17] MEDS: BLOOD SUGAR DIAGNOSTIC 1 EACH STRIP IN SCH ×5 (06:12→16:31)
[2023-08-17] MEDS: INSULIN REGULAR, HUMAN 100 UNIT/ML 3 ML VIAL SQ PRN ×3 (06:23→16:35)
[2023-08-17 07:01] LABS: BASOPHILS # (AUTO) 0.1 K/uL (0.0-0.2); BASOPHILS % (AUTO) 0.7 % (0.0-2.0); EOSINOPHILS # (AUTO) 0.3 K/uL (0.0-0.7); EOSINOPHILS % (AUTO) 3.7 % (0.0-6.0); HEMATOCRIT 30 % (39-51); HEMOGLOBIN 9.7 g/dL (13.5-17.5); LYMPHOCYTES % (AUTO) 26.4 % (20.0-44.0); MEAN CORPUSCULAR HEMOGLOBIN 24 PG (26.0-33.0); MEAN CORPUSCULAR HGB CONC 32 g/dl (31.0-36.0); MEAN CORPUSCULAR VOLUME 74 fL (80-96); MONOCYTES # (AUTO) 0.7 K/uL (0.1-1.30); MONOCYTES % (AUTO) 9.2 % (2.0-12.0); NEUTROPHILS # (AUTO) 4.5 K/uL (1.8-8.9); PLATELET COUNT (AUTO) 264 K/uL (150-450); RED BLOOD CELL COUNT(AUTO) 4.06 MIL/uL (4.5-6.0); RED CELL DISTRIBUTION WIDTH 14.8 % (11.5-15.0); WHITE BLOOD COUNT (AUTO) 7.4 K/uL (4.3-11.0)
[2023-08-17 07:28] LABS: CALCIUM, SERUM 8.2 mg/dL (8.5-10.1); CREATININE 0.9 mg/dL (0.6-1.3); MAGNESIUM 1.8 mg/dL (1.8-2.4); PHOSPHORUS 2.9 mg/dL (2.5-4.9); POTASSIUM 3.1 mmol/L (3.5-5.1)
[2023-08-17] MEDS: GLUCERNA SHAKE 237 ML CAN PO SCH ×2 (07:54→16:26)
[2023-08-17 08:31] VITALS: BP 145/74; TEMP 97.9; O2SAT 99
[2023-08-17] MEDS: DOCUSATE SODIUM 100 MG CAPSULE PO SCH (08:42)
[2023-08-17] MEDS: MULTIVITAMINS,THERAGRAN 1 UDTAB TABLET PO SCH (08:42)
[2023-08-17] MEDS: OLANZAPINE 2.5 MG TABLET PO SCH ×2 (08:42→16:25)
[2023-08-17] MEDS: DIVALPROEX SODIUM 125 MG TABLET.DR PO SCH ×3 (08:42→16:25)
[2023-08-17 08:43] VITALS: BP 145/74
[2023-08-17] MEDS: METOPROLOL TARTRATE 25 MG TABLET PO SCH (08:43)
[2023-08-17] MEDS: AMLODIPINE BESYLATE 10 MG TABLET PO SCH (08:43)
[2023-08-17 09:48] LABS: ANISOCYTOSIS 1+; EOSINOPHILS % (MANUAL) 3 % (0-4); HYPOCHROMASIA 1+; LYMPHOCYTES % (MANUAL) 26 % (16-48); MONOCYTES % (MANUAL) 6 % (0-11.0); MYELOCYTES % 5 % (0-0); NEUTROPHILS % (MANUAL) 58 (42-76); PLATELET ESTIMATE ADEQUATE; PROMYELOCYTES % 2 % (0-0)
[2023-08-17] MEDS: POTASSIUM CHLORIDE 20 MEQ TAB.PRT.SR PO SCH ×2 (10:17→12:27)
[2023-08-17] MEDS ORDERED: CEFT1VIA15 IV (10:34)
[2023-08-17] MEDS: ENOXAPARIN SODIUM 30 MG/0.3 ML DISP.SYRIN SQ SCH (12:29)
== END 2023-08-17 18:18 | DRG 871 ==
LOC: ER 16:30 → TELE 21:29 → MED 08-16 13:18
PROVIDERS: ADMIT Nurse Practitioner Acute Care; ATTEND Nurse Practitioner Acute Care
DX: A41.9 Sepsis, unspecified organism (principal); G93.41 Metabolic encephalopathy; N17.0 Acute kidney failure with tubular necrosis; E44.0 Moderate protein-calorie malnutrition; E87.0 Hyperosmolality and hypernatremia; N13.6 Pyonephrosis; F03.93 Unspecified dementia, unspecified severity, with mood disturbance; N39.0 Urinary tract infection, site not specified; E11.9 Type 2 diabetes mellitus without complications; E78.5 Hyperlipidemia, unspecified; E88.09 Other disorders of plasma-protein metabolism, not elsewhere classified; Z79.84 Long term (current) use of oral hypoglycemic drugs; I10 Essential (primary) hypertension; I25.10 Atherosclerotic heart disease of native coronary artery without angina pectoris; R31.9 Hematuria, unspecified; Z68.23 Body mass index [BMI] 23.0-23.9, adult; N40.1 Benign prostatic hyperplasia with lower urinary tract symptoms; K57.90 Diverticulosis of intestine, part unspecified, without perforation or abscess without bleeding; F31.9 Bipolar disorder, unspecified; T83.021A Displacement of indwelling urethral catheter, initial encounter; Y73.8 Miscellaneous gastroenterology and urology devices associated with adverse incidents, not elsewhere classified; Y92.129 Unspecified place in nursing home as the place of occurrence of the external cause; Z20.822 Contact with and (suspected) exposure to COVID-19; N13.8 Other obstructive and reflux uropathy
CPT/HCPCS: 36415; 70450-TC; 71045-TC; 80048-TC; 80076-TC; 81001; 82962-TC; 83690-TC; 83735-TC; 83880; 84100-TC; 84443-TC; 84484-TC; 85025-TC; 87081-TC; 87086-TC; 92526; 92611-TC; A4217; A4223; G0378; J1200; J1630; J1650; J1815; J2543; J3480; J3490; J7030; J7050; J7060; J7070